=== PATIENT | female | born 1945 | race Caucasian/White ===

== ENCOUNTER 2018-08-04 07:35 | Day surgery (SDC) ==
[2018-08-04 08:23] VITALS: TEMP 97.2
[2018-08-04] MEDS: LIDOCAINE 1% 20 ML MDV ID STA (08:40)
[2018-08-04] MEDS ORDERED: DIPRIVAN 20 ML VIAL IVP ONE (10:15)
[2018-08-04] MEDS ORDERED: VERSED ONE (10:15)
[2018-08-04 12:03] VITALS: BP 121/67
--- NOTE | 2018-08-05 13:19 | OP ---
PROCEDURE: COLONOSCOPY TO THE CECUM WITH BIOPSY. ENDOSCOPIST: Calvin GUTIERREZ M.D. INDICATION: HISTORY OF POLYPS. INSTRUMENT: [facility]-190. MEDICATION: PER ANESTHESIA. PROCEDURE: The patient was positioned for colonoscopy. The digital rectal exam was negative. The colonoscope was inserted through the anus and advanced to the cecum. The cecum was identified using the ileocecal valve and the appendiceal orifice as landmarks. The scope was slowly withdrawn through an adequately prepped colon. Tortuous exam and prep complicated the exam. [place] Bowel Prep Score 2 + 2 + 2. She had melanosis in the right colon. A small flat area in the cecum was removed using biopsy forceps. We could not get a snare around this area. No other significant abnormalities were noted. The retroflex exam was negative. A few scattered diverticula were seen. Withdrawal time 14 minutes and 20 seconds. PLAN: 1. Repeat in three years given the difficulty with the exam today. CC: DR. JIMMIE LONDON
== END 2018-08-04 11:35 | disposition home or self-care (01) ==
LOC: SURG 07:35
PROVIDERS: ATTEND Internal Medicine Gastroenterology
DX: Z86.010 Personal history of colon polyps (principal)